=== PATIENT | female | born 1990 | race Caucasian/White ===

== ENCOUNTER 2022-01-19 16:18 | Emergency (ER) | payer OTHER ==
[2022-01-19 16:47] VITALS: BP 115/70; PULSE 94; TEMP 98.3; BMI 33.3
[2022-01-19 18:31] LABS: BASO % 0.3 % (0-2.0); HEMATOCRIT 42.6 % (32.4-45.2); HEMOGLOBIN 14.3 GM/dL (10.7-15.3); LYMPH % 19.5 % (8-40); MCH 30.7 pg (25.7-33.7); MCHC 33.5 g/dl (32.0-36.0); MEAN CELL VOLUME 91.5 fl (80-96); MEAN PLT VOLUME 9.7 fl (7.5-11.1); MONO % 7.2 % (3.8-10.2); RBC 4.66 M/mm3 (3.60-5.2); RDW 13.3 % (11.6-15.6)
[2022-01-19 18:50] LABS: CALCIUM 9.5 mg/dL (8.5-10.1); PLATELET COUNT 177 10^3/uL (134-434); PLATELET ESTIMATE ADEQUATE
[2022-01-19 18:51] LABS: BLOOD UREA NITROGEN 12.5 mg/dL (7-18)
[2022-01-19 18:54] LABS: CREATININE 0.8 mg/dL (0.55-1.3)
[2022-01-19 18:55] LABS: BILIRUBIN,TOTAL 0.2 mg/dL (0.2-1); TOT PROT 7.7 g/dl (6.4-8.2)
== END 2022-01-19 19:18 | disposition home or self-care (01) ==
LOC: JER 16:18
DX: R06.02 Shortness of breath (principal)
CPT/HCPCS: 36415; 71046-TC-FY; 80053; 84484; 85025; 93005; 93010; 99285-25

== ENCOUNTER 2022-03-17 18:23 | Emergency (ER) | payer OTHER ==
[2022-03-17 18:36] VITALS: BP 103/61; PULSE 75; RESP 18; TEMP 97.8; BMI 34.1
== END 2022-03-17 19:18 | disposition left against medical advice (07) ==
LOC: JERFT 18:23
DX: H92.02 Otalgia, left ear (principal)
CPT/HCPCS: 99281-25

== ENCOUNTER 2022-03-18 10:21 | Emergency (ER) | payer OTHER ==
[2022-03-18 11:00] VITALS: BP 108/65; PULSE 94; RESP 18; TEMP 97.8; BMI 33.0
== END 2022-03-18 12:00 | disposition home or self-care (01) ==
LOC: JERFT 10:21
DX: H92.02 Otalgia, left ear (principal); H60.502 Unspecified acute noninfective otitis externa, left ear
CPT/HCPCS: 99283-25

== ENCOUNTER 2023-05-14 13:24 | Emergency (ER) | payer OTHER ==
[2023-05-14 13:32] VITALS: BP 119/72; PULSE 105; RESP 18; TEMP 97.6; BMI 33.0
[2023-05-14] MEDS ORDERED: ACETAMINOPHEN 500 MG TABLET (FP) PO ONE (16:03)
[2023-05-14] MEDS ORDERED: KETOROLAC TROMETHAMINE 30 MG/1 ML VIAL IM ONE (16:04)
[2023-05-14] MEDS ORDERED: KETOROLAC TROMETHAMINE 30 MG/1 ML VIAL ONE (16:09)
[2023-05-14] MEDS ORDERED: ACETAMINOPHEN 500 MG TABLET (FP) ONE (16:10)
== END 2023-05-14 18:00 | disposition home or self-care (01) ==
LOC: JERFT 13:24
PROC: 3E0233Z Introduction of Anti-inflammatory into Muscle, Percutaneous Approach (ICD-10-PCS; principal; 2023-05-14)
DX: M54.2 Cervicalgia (principal); R07.9 Chest pain, unspecified; M54.6 Pain in thoracic spine; S22.32XA Fracture of one rib, left side, initial encounter for closed fracture; V86.55XA Driver of 3- or 4- wheeled all-terrain vehicle (ATV) injured in nontraffic accident, initial encounter
CPT/HCPCS: 71046-TC-FY; 99284-25